=== PATIENT | female | born 1985 | race Caucasian/White ===

== ENCOUNTER 2016-08-29 17:13 | Emergency (ER) | payer OTHER ==
[~2016-08-29 17:13] MED LIST: AMOXICILLIN PO; NEURONTIN300 MG PO; XANAX0.5 M1 PO
== END 2016-08-29 17:15 | disposition home or self-care (01) ==
LOC: SED 17:13
DX: F32.9 Major depressive disorder, single episode, unspecified (principal); G47.00 Insomnia, unspecified
CPT/HCPCS: 99283